=== PATIENT | female | born 1935 | race African-American/Black ===

== ENCOUNTER 2017-01-29 19:31 | Outpatient (CLI) ==
--- NOTE | 2017-01-29 21:24 | DI ---
EXAM: Lumbar spine three views, including flexion and extension lateral views HISTORY: Lumbar facet arthropathy COMPARISON: None TECHNIQUE: AP view and flexion and extension lateral views were performed FINDINGS: AP view is limited due to patient positioning. Sacroiliac joints intact. Sacral arcuate intact. Mild compression deformity T12 and moderate compression deformity L1, one of which is new f rom radiograph chest 10/23/2011. Multilevel intervertebral disc space narrowing, the degree of whic h is difficult to characterize due to patient positioning. Multilevel marginal osteophyte formation . Multilevel facet arthrosis. Approximately 3 mm anterolisthesis of L2 on L3, unchanged with flexi on and extension. Approximately 4 mm anterolisthesis of L3 on L4, unchanged with flexion and extens ion. Approximately 3 mm anterolisthesis of L4 on L5, unchanged with flexion and extension. Athero sclerosis.. IMPRESSION: 1. Mild compression deformity T12 and moderate compression deformity L1, one of which is new from radiograph chest 10/23/2011. 2. Chronic discogenic degenerative disease and facet arthrosis. Multilevel grade 1 anterolisthesis . No segment instability identified.
== END 2017-01-29 19:32 | disposition home or self-care (01) ==
LOC: RAD 19:31
PROVIDERS: ATTEND Nurse Practitioner Family
DX: M12.88 Other specific arthropathies, not elsewhere classified, other specified site (principal)

== ENCOUNTER 2017-07-16 08:51 | Outpatient (CLI) ==
--- NOTE | 2017-07-16 11:11 | MAMMO ---
EXAM: Digital screening mammogram with CAD HISTORY: Screening mammogram COMPARISON: Mammogram 02/11/2016 and 12/06/2013 FINDINGS: Bilateral CC and MLO views of the breasts were performed digitally and demonstrate scatter ed fibroglandular breast density. Bilateral vascular calcifications are present. There is no abnorma l nodule or calcification. There is no significant interval change. IMPRESSION: No new or suspicious nodule or calcification RECOMMENDATION: Annual screening mammogram BIRADS category II: Benign findings
== END 2017-07-16 08:52 | disposition home or self-care (01) ==
LOC: RAD 08:51
PROVIDERS: ATTEND Family Medicine
DX: Z12.31 Encounter for screening mammogram for malignant neoplasm of breast (principal)
CPT/HCPCS: 77067

== ENCOUNTER 2018-01-15 17:37 | Emergency (ER) | payer OTHER ==
[2018-01-15 17:46] VITALS: TEMP 97.9; BMI 31.2
--- NOTE | 2018-01-15 18:17 | ED.PDOC ---
General ED Provider: Dr. BRADY LOPEZ Chief Complaint: Dizziness Stated Complaint: Patient is an 82 year old female who comes to the ER with syncope for about 5 minutes No seizure activity. Time Seen by Physician: 17:38 Mode of Arrival: Wheelchair Information Source: Patient, Family Primary Care Provider: BRY SNOW Nursing and Triage Documentation Reviewed and Agree: Yes Reviewed sepsis parameters & appropriate labs ordered?: No System Inflammatory Response Syndrome: Not Applicable Sepsis Protocol: For patient's 13 years and over: Temp is 96.8 and below OR 101 and greater Pulse >90 BPM Resp >20/minute Acutely Altered Mental Status Are patient's symptoms suggestive of a new infection, such as: -Pneumonia -Skin, Soft Tissue -Endocarditis -UTI -Bone, Joint Infection -Implantable Device -Acute Abdominal Infection -Wound Infection -Meningitis -Blood Stream Catheter Infection -Unknown Review of Systems - Review Of Systems Constitutional: Reports: No symptoms Eyes: Reports: No symptoms Ears, Nose, Mouth, Throat: Reports: No symptoms Respiratory: Reports: No symptoms Cardiac: Reports: Lightheadedness, Syncope GI: Reports: No symptoms : Reports: No symptoms Musculoskeletal: Reports: No symptoms Skin: Reports: No symptoms Neurological: Reports: No symptoms Endocrine: Reports: No symptoms Hematologic/Lymphatic: Reports: No symptoms All Other Systems: Reviewed and Negative Past Medical History - Past Medical History Previously Healthy: Yes Endocrine: Reports: DM 2 Cardiovascular: Reports: CAD, CHF Respiratory: Reports: None Hematological: Reports: None Gastrointestinal: Reports: None Genitourinary: Reports: None Neuro/Psych: Reports: None Musculoskeletal: Reports: None Cancer: Reports: None Last Menstrual Period: n/a - Surgical History General Surgical History: Reports: None - Family History Family History: Reports: Unknown - Social History Smoking Status: Never smoker Hx Substance Use: No Alcohol Screening: None Physical Exam - Physical Exam Appearance: Well-appearing, No pain distress, Well-nourished Eyes: VERONA, EOMI, Conjunctiva clear ENT: Ears normal, Nose normal, Oropharynx normal Respiratory: Airway patent, Breath sounds clear, Breath sounds equal, Respirations nonlabored Cardiovascular: RRR, Pulses normal, No rub, No murmur GI/: Soft, Nontender, No masses, Bowel sounds normal, No Organomegaly Musculoskeletal: Normal strength, ROM intact, No edema, No calf tenderness Skin: Warm, Dry, Normal color Neurological: Sensation intact, Motor intact, Reflexes intact, Cranial nerves intact, Alert, Oriented Psychiatric: Affect appropriate, Mood appropriate Interpretation - Radiology Interpretation Radiology Interpretation By: Radiologist Radiology Results: No acute changes Exam Interpreted: CT Scan Radiology Interpretation By: ED Physician Radiology Results: Negative Exam Interpreted: 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 heller Time of Notification: 19:50 (accepted for transfer to [facility], [place], [facility]) Critical Care Note - Critical Care Note Total Time (mins): 30 Course - Course Hematology/Chemistry: 01/15/18 17:59 01/15/18 17:59 Orders, Labs, Meds: Lab Review 01/15/18 01/15/18 17:59 17:59 WBC 6.99 RBC 2.94 L Hgb 9.6 L Hct 29.1 L MCV 99.0 MCH 32.7 H MCHC 33.0 RDW Coeff of Cy 15.4 H Plt Count 153 Immature Gran % (Auto) 0.1 Neut % (Auto) 43.1 Lymph % (Auto) 41.9 Dickey % (Auto) 10.9 H Eos % (Auto) 3.6 Baso % (Auto) 0.4 Immature Gran # (Auto) 0.0 Neut # (Auto) 3.0 Lymph # (Auto) 2.9 Dickey # (Auto) 0.8 Eos # (Auto) 0.3 Baso # (Auto) 0.0 Sodium 143 Potassium 3.5 Chloride 109 H Carbon Dioxide 24 Anion Gap 13.5 BUN 26 H Creatinine 1.72 H Estimated GFR (MDRD) 35.00 BUN/Creatinine Ratio 15.11 Glucose 111 Calcium 9.4 Total Bilirubin 0.8 AST 47 H ALT 30 Alkaline Phosphatase 115 Total Creatine Kinase 92 Troponin I < 0.0100 Total Protein 7.0 Albumin 3.4 Globulin 3.6 Albumin/Globulin Ratio 0.94 Orders Category Date Time Status EKG-(ED ONLY) Stat CARDIO 01/15/18 17:47 Completed ED IV/MEDIPORT/POWERPORT .ONCE EMERGENCY 01/15/18 19:56 Active CBC W/ AUTO DIFF Stat LAB 01/15/18 17:59 Completed COMPREHENSIVE METABOLIC PANEL Stat LAB 01/15/18 17:59 Completed CREATINE KINASE Stat LAB 01/15/18 17:59 Completed TROPONIN I Stat LAB 01/15/18 17:59 Completed 0.9 % Sodium Chloride [Saline Flush] MEDS 01/15/18 19:56 Ordered 1 syr IVF PRN PRN Sodium Chloride 0.9% [Sodium Chloride] 1,000 ml MEDS 01/15/18 19:56 Active IV 75 mls/hr CHEST, 1V AP ONLY Stat RADS 01/15/18 17:[address] HEAD W/O CONTRAST Stat RADS 01/15/18 17:47 Completed Medications Generic Name Dose Route Start Last Admin Trade Name Freq PRN Reason Stop Dose Admin Sodium Chloride 1,000 mls @ 75 mls/hr 01/15/18 19:56 Sodium Chloride IV 01/16/18 09:15 .[id number] STA Sodium Chloride 1 syr 01/15/18 19:56 Saline Flush IVF PRN PRN To flush IV Vital Signs: Temp Pulse Resp BP Pulse Ox 01/15/18 18:55 70 125/57 L 01/15/18 17:38 97.9 F 71 16 146/79 H 94 L Departure - Departure Time of Disposition: 19:57 Disposition: HOME SELF-CARE Discharge Problem: Acute renal insufficiency Syncope Qualifiers: Syncope type: unspecified Qualified Code(s): R55 - Syncope and collapse Condition: Stable Pt referred to PMD for follow-up: No IPMP verified?: No Allergies/Adverse Reactions: Allergies No Known Allergies Allergy (Verified 01/15/18 17:46) Home Medications: Ambulatory Orders Atenolol 50 mg PO BID 05/01/15 Gabapentin [Neurontin] 300 mg PO DAILY 05/01/15 Insulin Glargine,Hum.rec.anlog [Lantus] 100 unit SQ DAILY vial 05/01/15 Simvastatin 80 mg PO DAILY 05/01/15 Ticagrelor [Brilinta] 90 mg PO BID 05/01/15
--- NOTE | 2018-01-15 18:21 | CT ---
EXAM: CT brain without contrast HISTORY: Syncope TECHNIQUE: CT of the brain without intravenous contrast FINDINGS: There is no acute hemorrhage midline shift or mass effect. No hydrocephalus or abnormal e xtra-axial fluid collection. Generalized involutional atrophy, moderate. Chronic microvascular watson ges of the white matter tracts, mild. No large vessel territorial infarct is seen. The bony cranium appears normal. The visualized paranasal sinuses are clear. Soft tissues without significant abnorma lity. IMPRESSION: 1. Chronic changes as described. No acute intracranial abnormality is seen.
--- NOTE | 2018-01-15 18:31 | DI ---
EXAM: Single view chest COMPARISON: Chest Xray from 06/01/2014 HISTORY: Syncope FINDINGS: Lungs are clear with no lobar consolidation, failure, large effusion or significant atelec tasis. There is old granulomatous disease. Cardiac and mediastinal silhouettes show no acute abnormal ity. There is cardiomegaly. No acute soft tissue or osseous abnormalities. IMPRESSION: No active disease.
[2018-01-15 18:56] VITALS: BP 126/57
[2018-01-15] MEDS: SODIUM CHLORIDE 1,000 ML IV STA (20:07)
== END 2018-01-15 20:50 | disposition home or self-care (01) ==
LOC: ED 17:37
DX: R55 Syncope and collapse (principal); N28.9 Disorder of kidney and ureter, unspecified; R42 Dizziness and giddiness; E11.9 Type 2 diabetes mellitus without complications; I25.10 Atherosclerotic heart disease of native coronary artery without angina pectoris; I50.9 Heart failure, unspecified; R11.0 Nausea; I25.2 Old myocardial infarction; Z86.73 Personal history of transient ischemic attack (TIA), and cerebral infarction without residual deficits; Z79.899 Other long term (current) drug therapy
CPT/HCPCS: 36415; 80053; 82550; 84484; 85025; 93005; 93010; 96360; 99285

== ENCOUNTER 2018-04-14 19:50 | Outpatient (CLI) | payer OTHER ==
[2018-04-04 17:59] VITALS: BMI 32.3
== END 2018-04-14 19:51 | disposition home or self-care (01) ==
LOC: LAB 19:50
PROVIDERS: ATTEND Family Medicine
DX: R31.0 Gross hematuria (principal)

== ENCOUNTER 2018-06-09 12:59 | Outpatient (CLI) ==
[2018-04-04 17:59] VITALS: BMI 32.3
== END 2018-06-09 13:00 | disposition home or self-care (01) ==
LOC: CAR 12:59
PROVIDERS: ATTEND Family Medicine
DX: R06.02 Shortness of breath (principal); I25.10 Atherosclerotic heart disease of native coronary artery without angina pectoris; I27.20 Pulmonary hypertension, unspecified; R60.9 Edema, unspecified; J45.20 Mild intermittent asthma, uncomplicated; I49.9 Cardiac arrhythmia, unspecified; N17.9 Acute kidney failure, unspecified; Z79.01 Long term (current) use of anticoagulants; R55 Syncope and collapse; I38 Endocarditis, valve unspecified
CPT/HCPCS: 94761

== ENCOUNTER 2018-09-21 11:17 | Outpatient (CLI) ==
[2018-04-04 17:59] VITALS: BMI 32.3
--- NOTE | 2018-09-23 10:34 | MAMMO ---
EXAM: Bilateral digital screening mammogram (2-D and 3-D) History: Screening Comparison: Bilateral mammogram 07/16/2017 Findings: MLO and CC views of bilateral breasts demonstrate scattered fibroglandular breast parenchy ma. CAD was reviewed by the radiologist. Tomosynthesis was performed. There are no dominant masses , no suspicious microcalcifications and no architectural distortions. Stable benign bilateral vascul ar calcifications. Impression: Benign stable mammogram. Recommend followup routine screening mammography in 1 year. BIRADS 2, benign
== END 2018-09-21 11:18 | disposition home or self-care (01) ==
LOC: RAD 11:17
PROVIDERS: ATTEND Family Medicine
DX: Z12.31 Encounter for screening mammogram for malignant neoplasm of breast (principal)